=== PATIENT | female | born 1965 | race Caucasian/White ===

== ENCOUNTER → 2017-02-24 | Outpatient (CLI) | payer OTHER ==
[~2017-02-24] MED LIST: AEROCHAMBER1 DEV IH; ALBUTEROL2 PUFFS/17 IN; AZITHROMYCIN250 MG PO; BENZONATATE100 MG PO; CELEXA20 MG PO; CIPRO 500MG TA500 MG PO; ESTRADIOL1 M1 PO; FIORICET 325 MG1 TAB PO; GABAPENTIN 400400 MG PO; GABAPENTIN300 MG PO; HYCODAN 1.5 MG480 ML PO; HYDROCODON-ACETAMINO PO; HYDROCODONE1 TABLET PO; KEFLEX 500MG.500 MG PO; LEVSIN0.125 MG PO; LEXAPRO 10 MG T10 MG PO; LOMOTIL 0.025 M1 TAB PO; LORAZEPAM1 MG/TABLE PO; LORAZEPAM2 MG PO; LORTAB 5/500 501 TAB PO; MULTIVITAMIN1 TA2 PO; NOMEDS XX; NORCO 325 MG-51 TAB PO; PHENERGAN 25MG.25 M1 PO; PREDNISONE 20MG20 MG PO; PROMETHAZINE D473 ML PO; PROVERA2.5 MG PO; ROBAXIN-750750 MG PO; SILVADENE CREAM50 GM TP; SURFAK 240MG C240 MG PO; TAMIFLU75 MG PO; TOPIRAMATE50 MG PO; TORADOL10 MG PO; VICODIN 5/500 T1 TAB PO; XANAX 0.5MG TA0.5 MG PO; ZANTAC 150150 MG OR; ZITHROMAX 250M250 MG PO; ZITHROMAX Z PA250 MG PO
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
== END ==
LOC: RAD 13:40
DX: M54.6 Pain in thoracic spine (principal); S22.000G Wedge compression fracture of unspecified thoracic vertebra, subsequent encounter for fracture with delayed healing

== ENCOUNTER → 2017-03-24 | Outpatient (CLI) | payer OTHER ==
[2017-03-24 10:10] LABS: HEMOGLOBIN 13.5 g/dL (12.2-16.2); LYMPH # 1.8 K/mm3 (0.7-4.5); LYMPH % 27.5 % (10-50.0)
[2017-03-24 10:22] LABS: AMPHETAMINES/METAMPHETAMINES NEGATIVE ng/mL (<1000)
[2017-03-24 11:33] LABS: BUN 17 mg/dL (7-18)
[2017-03-24 12:04] LABS: GFR (ESTIMATED) 76 ML/MIN (59-)
== END ==
LOC: LAB 09:38
PROVIDERS: Nurse Practitioner Psychiatric/Mental Health
DX: F33.0 Major depressive disorder, recurrent, mild (principal)